=== PATIENT | male | born 1980 | race Two or more races ===

== ENCOUNTER 2020-07-18 23:55 | Emergency (ER) | payer MEDICAID ==
[~2020-07-18] VITALS: Ht 180.3 cm; Wt 91.0 kg
[2020-07-19] MEDS ORDERED: LIDOCAINE HCL/PF 1% 10 MG/ML 5ML VIAL IJ ONE (01:15)
[2020-07-19] MEDS ORDERED: TETANUS, DIPHTHERIA, PERTUSSIS VAC/PF 0.5ML (>7YR OLD) IM ONE (01:15)
[2020-07-19] MEDS ORDERED: BACITRACIN ZINC OINT UDPKT TOP ONE (01:15)
[2020-07-19] MEDS ORDERED: HYDROCODONE/ACETAMINOPHEN 5/325MG TABLET PO STA (01:48)
[2020-07-19 03:05] VITALS: BP 111/79
== END 2020-07-19 03:15 | disposition home or self-care (01) ==
LOC: ER 23:55
DX: S01.01XA Laceration without foreign body of scalp, initial encounter (principal); S40.211A Abrasion of right shoulder, initial encounter; I10 Essential (primary) hypertension; X99.9XXA Assault by unspecified sharp object, initial encounter; Y93.89 Activity, other specified; Y92.89 Other specified places as the place of occurrence of the external cause; Z23 Encounter for immunization
CPT/HCPCS: 12001; 70450; 90471; 90715; 99284; J3490

== ENCOUNTER 2020-07-28 17:49 | Emergency (ER) | payer MEDICAID ==
[~2020-07-28] VITALS: Ht 170.2 cm; Wt 68.0 kg
[2020-07-28 19:11] VITALS: BP 132/78
== END 2020-07-28 19:11 | disposition home or self-care (01) ==
LOC: ER 17:49
DX: S01.01XD Laceration without foreign body of scalp, subsequent encounter (principal); I10 Essential (primary) hypertension; Z48.02 Encounter for removal of sutures; X58.XXXD Exposure to other specified factors, subsequent encounter
CPT/HCPCS: 99281